=== PATIENT | female | born 1950 | race Caucasian/White ===

== ENCOUNTER 2023-10-01 15:21 | Emergency (ER) | payer OTHER ==
--- NOTE | 2023-10-01 15:47 | RAD REPORT ---
EXAM DESCRIPTION: CT - Ct Stroke Brain Wo Cont - 10/01/2023 3:37 pm CLINICAL HISTORY: STROKE ALERT COMPARISON: No comparisons TECHNIQUE: All CT scans are performed using dose optimization technique as appropriate and may inclu de automated exposure control or mA/KV adjustment according to patient size. FINDINGS: No intracranial hemorrhage, hydrocephalus or extra-axial fluid collection.No areas of brai n edema or evidence of midline shift. Patchy areas of white matter hypoattenuation in the subcortical and deep white matter likely reflecting chronic small vessel ischemic changes. No acute large vascul ar territory infarct identified. The paranasal sinuses and mastoids are clear. The calvarium is intact. IMPRESSION: No definite acute intracranial abnormality. Small nonspecific focus of high attenuation in the region of the right MCA which can be assessed on the forthcoming CTA head to exclude an acute thrombus. Conveyed to Dr. Forte by Dr. Lucas at 8598 on 10/01/23
--- NOTE | 2023-10-01 15:49 | EDPHYS ---
Physician Documentation [facility] Name: Karen Hammer Age: 73 yrs Sex: Female : 1950 Arrival Date: 10/01/2023 Time: 15:21 Bed 8 Private MD: ED Physician Winston Forte HPI: 09/30 15:31 This 73 yrs old Female presents to ER via EMS with complaints of left side megan weakness , on floor , last normal seen 730. 15:31 The patient's problem is reported as a facial droop, paresthesias, in left upper megan extremity, in left lower extremity. Onset: The symptoms/episode began/occurred today, at an unknown time. Duration: The episode is continuous. Context: found bu 130pm. The symptoms are alleviated by nothing. The symptoms are aggravated by nothing. Associated signs and symptoms: Pertinent positives: gait abnormality, weakness. Severity of symptoms: At their worst the symptoms were moderate in the emergency department the symptoms are unchanged. Patient's baseline: Neuro: alert and fully oriented, Motor: left-sided weakness, left-sided facial droop. The patient has not experienced similar symptoms in the past. Historical: - PMHx: 15:28 Diabetes mellitus; ll1 - Immunization history:: Adult Immunizations up to date. - Infectious Disease History:: Denies. - Social history:: Smoking status: Patient denies any tobacco usage or history of. ROS: 15:37 Constitutional: Negative for fever, chills, and weight loss, Eyes: Negative for injury, megan pain, redness, and discharge, ENT: Negative for injury, pain, and discharge, Neck: Negative for injury, pain, and swelling, Cardiovascular: Negative for chest pain, palpitations, and edema, Respiratory: Negative for shortness of breath, cough, wheezing, and pleuritic chest pain, Abdomen/GI: Negative for abdominal pain, nausea, vomiting, diarrhea, and constipation, Back: Negative for injury and pain, : Negative for injury, bleeding, discharge, and swelling, MS/Extremity: Negative for injury and deformity, Skin: Negative for injury, rash, and discoloration, Psych: Negative for depression, anxiety, suicide ideation, homicidal ideation, and hallucinations, Allergy/Immunology: Negative for hives, rash, and allergies, Endocrine: Negative for neck swelling, polydipsia, polyuria, polyphagia, and marked weight changes, Hematologic/Lymphatic: Negative for swollen nodes, abnormal bleeding, and unusual bruising, 15:37 Neuro: Positive for dizziness, weakness, of the face, left arm and left leg, Exam: 15:37 Constitutional: This is a well developed, well nourished patient who is awake, alert, megan and in no acute distress. Head/Face: Normocephalic, atraumatic. Eyes: Pupils equal round and reactive to light, extra-ocular motions intact. Lids and lashes normal. Conjunctiva and sclera are non-icteric and not injected. Cornea within normal limits. Periorbital areas with no swelling, redness, or edema. ENT: Nares patent. No nasal discharge, no septal abnormalities noted. Tympanic membranes are normal and external auditory canals are clear. Oropharynx with no redness, swelling, or masses, exudates, or evidence of obstruction, uvula midline. Mucous membranes moist. Neck: Trachea midline, no thyromegaly or masses palpated, and no cervical lymphadenopathy. Supple, full range of motion without nuchal rigidity, or vertebral point tenderness. No Meningismus. Chest/axilla: Normal chest wall appearance and motion. Nontender with no deformity. No lesions are appreciated. Cardiovascular: Regular rate and rhythm with a normal S1 and S2. No gallops, murmurs, or rubs. Normal PMI, no JVD. No pulse deficits. Respiratory: Lungs have equal breath sounds bilaterally, clear to auscultation and percussion. No rales, rhonchi or wheezes noted. No increased work of breathing, no retractions or nasal flaring. Abdomen/GI: Soft, non-tender, with normal bowel sounds. No distension or tympany. No guarding or rebound. No evidence of tenderness throughout. Back: No spinal tenderness. No costovertebral tenderness. Full range of motion. Female : Normal external genitalia. Skin: Warm, dry with normal turgor. Normal color with no rashes, no lesions, and no evidence of cellulitis. MS/ Extremity: Pulses equal, no cyanosis. Neurovascular intact. Full, normal range of motion. Psych: Awake, alert, with orientation to person, place and time. Behavior, mood, and affect are within normal limits. 15:37 Neuro: Orientation: is normal, appropriate for stated age, no acute changes, Mentation: is normal, appropriate for stated age, no acute changes, Memory: is normal, appropriate for stated age, no acute changes, Cranial nerves: facial droop noted on left, with forehead spared. Nystagmus is absent. Speech is clear and appropriate. Gag reflex present. Cerebellar function: is grossly normal, Sensation: is normal, no obvious gross deficits, appropriate no acute changes, Gait: not tested. 15:43 Radiologist reports: see report [facility] 16:16 ECG was reviewed by the Attending Physician. [facility] Vital Signs: 15:26 BP 142 / 76; Pulse 84; Resp 17; Temp 97.2(TE); Pulse Ox 100% on R/A; Weight 110.22 kg; ll1 Height 5 ft. 7 in. ; Pain 0/10; 16:24 BP 145 / 79; Pulse 94; Resp 17; Temp 97.2; Pulse Ox 99% ; bp 15:26 Body Mass Index 38.06 (110.22 kg, 170.18 cm) ll1 15:26 Pain Scale: Adult ll1 NIH Stroke Scale Scores: 15:52 NIHSS Score: 9 megan 16:05 NIHSS Score: 11 ph MDM: 15:27 Patient medically screened. [facility] 15:44 Differential diagnosis: CVA, TIA, metabolic disorder. Data reviewed: vital signs, [facility] nurses notes, EMS record, lab test result(s), EKG, radiologic studies, CT scan, plain films. Consideration of Admission/Observation Escalation of care including admission/observation considered. I considered the following discharge prescriptions or medication management in the emergency department Medications were administered in the Emergency Department. See MAR. Independent interpretation of the following test(s) in the Emergency Department EKG: See my EKG interpretation above. Test considered but Not performed: MRI: no mri brain. Historians other than the Patient: Spouse/Significant Other: well informed. Care significantly affected by the following chronic conditions: Diabetes. Counseling: I had a detailed discussion with the patient and/or guardian regarding the historical points, exam findings, and any diagnostic results supporting the discharge/admit diagnosis, lab results, radiology results, the need to transfer to another facility, for higher level of care, [facility] does not immediately have the required specialist. 09/30 15:29 Order name: Basic Metabolic Panel [facility] 09/30 15:29 Order name: CBC with Diff; Complete Time: 16:16 [facility] 09/30 15:29 Order name: LFT's [facility] 09/30 15:29 Order name: Magnesium [facility] 09/30 15:29 Order name: NT PRO-BNP [facility] 09/30 15:29 Order name: PT-INR [facility] 09/30 15:29 Order name: Troponin HS [facility] 09/30 15:29 Order name: CRP [facility] 09/30 15:29 Order name: XRAY Chest (1 view) [facility] 09/30 15:29 Order name: CT Stroke Brain w/o Contrast; Complete Time: 16:16 [facility] 09/30 15:29 Order name: CT Head Angio; Complete Time: 16:16 [facility] 09/30 15:29 Order name: CT Neck Angio; Complete Time: 16:16 [facility] 09/30 15:29 Order name: EKG; Complete Time: 15:30 [facility] 09/30 15:29 Order name: Cardiac monitoring; Complete Time: 15:57 [facility] 09/30 15:29 Order name: EKG - Nurse/Tech; Complete Time: 16:28 [facility] 09/30 15:29 Order name: IV Saline Lock; Complete Time: 15:57 [facility] 09/30 15:29 Order name: Labs collected and sent; Complete Time: 15:57 [facility] 09/30 15:29 Order name: O2 Per Protocol; Complete Time: 15:57 [facility] 09/30 15:29 Order name: O2 Sat Monitoring; Complete Time: 15:57 [facility] 09/30 15:55 Order name: NPO; Complete Time: 16:27 [facility] 09/30 15:58 Order name: IV Saline Lock - Large Bore; Complete Time: 16:27 [facility] EC:16 Rate is 79 beats/min. Rhythm is regular. QRS Bartley is Normal. DC interval is normal. QRS megan interval is normal. QT interval is normal. No Q waves. T waves are Normal. No ST changes noted. Clinical impression: NSR w/ Non-specific ST/T Changes and No evidence of ischemia. Interpreted by me. Reviewed by me. Administered Medications: 16:00 Drug: NS 0.9% IV 1000 ml IV at 1 bolus Per protocol; 1000 mL bolus Route: IV; Rate: 1 bp bolus; Site: right forearm; 16:29 Follow up: IV Status: Infusion continued upon transfer bp 16:00 Drug: foLIC Acid IVPB 1 mg IVPB once Route: IVPB; Site: right forearm; bp 16:29 Follow up: IV Status: Completed infusion bp 16:00 Drug: Famotidine IVP 20 mg IVP once; dilute with 10 mL 0.9% NaCl; give over 2 minutes bp Route: IVP; Site: right forearm; 16:28 Follow up: Response: No adverse reaction bp 16:00 Drug: Aspirin DC Suppository 300 mg DC once Route: DC; bp 16:28 Follow up: Response: No adverse reaction bp 16:00 Drug: NS 0.9% IV 1000 ml IV at 125 ml/hr continuous Route: IV; Rate: 125 ml/hr; Site: bp right forearm; 16:28 Follow up: IV Status: Infusion continued upon transfer bp Disposition Summary: 10/01/23 15:48 Transfer Ordered Notes: Transfer Location: [facility] megan Reason: Higher level of care megan Condition: Serious megan Problem: new megan Symptoms: have improved megan Accepting Physician: to [facility], [facility](10/01/23 16:32) ll1 Diagnosis - Cerebral infarction, unspecified - left face, arm and leg hemiparesis, unk window, megan last normal 730am - Type 2 diabetes mellitus with hyperglycemia megan Forms: - Medication Reconciliation Form megan - SBAR form megan Critical care time excluding procedures: 15:56 Critical care time: Bedside Care: 30 minutes, Consultation: 15 minutes, Family megan Intervention: 10 minutes. Total time: 55 minutes NIH Stroke Scale - NIH Stroke Score Date: 10/01/2023 Time: 15:52 Total Score = 9 10. Dysarthria (speech clarity - read or repeat words) - 0(Normal) 11. Extinction and Inattention (visual/tactile/auditory/spatial/personal) - 0(No abnormality) 1a. Level of Consciousness (LOC) - 0(Alert) 1b. Level of Consciousness (LOC) (Month \T\ Age) - 0(Both) 1c. LOC Commands (Open \T\ Closes Eyes/Portable Router Operator) - 0(Both) 2. Best Gaze (Lateral Gaze Paresis) - 0(Normal) 3. Visual Field Loss - 0(No visual loss) 4. Facial Palsy - 1(Minor Paralysis) 5a. Left Arm: Motor (10-second hold) - 3(No effort against gravity) 5b. Right Arm: Motor (10-second hold) - 0(No drift) 6a. Left Leg: Motor (5-second hold - always test supine) - 3(No effort against gravity) 6b. Right Leg: Motor (5-second hold - always test supine) - 0(No drift) 7. Limb Ataxia (finger/nose \T\ heel/maxwell - test with eyes open) - 2(Present in two limbs) 8. Sensory Loss (pinprick arms/legs/face) - 0(Normal) 9. Best Language: Aphasia (description/naming/reading) - 0(No aphasia) Initials: [facility] NIH Stroke Scale - NIH Stroke Score Date: 10/01/2023 Time: 16:05 Total Score = 11 10. Dysarthria (speech clarity - read or repeat words) - 0(Normal) 11. Extinction and Inattention (visual/tactile/auditory/spatial/personal) - 0(No abnormality) 1a. Level of Consciousness (LOC) - 0(Alert) 1b. Level of Consciousness (LOC) (Month \T\ Age) - 1(One) 1c. LOC Commands (Open \T\ Closes Eyes/Portable Router Operator) - 0(Both) 2. Best Gaze (Lateral Gaze Paresis) - 1(Partial gaze palsy) 3. Visual Field Loss - 1(Partial hemianopia) 4. Facial Palsy - 1(Minor Paralysis) 5a. Left Arm: Motor (10-second hold) - 3(No effort against gravity) 5b. Right Arm: Motor (10-second hold) - 0(No drift) 6a. Left Leg: Motor (5-second hold - always test supine) - 3(No effort against gravity) 6b. Right Leg: Motor (5-second hold - always test supine) - 0(No drift) 7. Limb Ataxia (finger/nose \T\ heel/maxwell - test with eyes open) - 0(Absent) 8. Sensory Loss (pinprick arms/legs/face) - 0(Normal) 9. Best Language: Aphasia (description/naming/reading) - 1(Mild to moderate aphasia) Initials: Signatures: Dispatcher [employer] EDWinston Peace MD MD cha Peltier, Brian, RN RN bp Lewis, Lynsay, RN RN ll1 Corrections: (The following items were deleted from the chart) 15:48 15:48 to [facility] 16:32 15:48 to [facility], [facility] ll1
--- NOTE | 2023-10-01 15:49 | ER ---
Nurse's Notes [facility] Name: Karen Hammer Age: 73 yrs Sex: Female : 1950 Arrival Date: 10/01/2023 Time: 15:21 Bed 8 Private MD: Diagnosis: Cerebral infarction, unspecified-left face, arm and leg hemiparesis, unk window, last normal 730am;Type 2 diabetes mellitus with hyperglycemia Presentation: 09/30 15:26 Chief complaint: Patient states: left home at 0730 AM and she was normal. Came ll1 home at 1330, and found her on the floor, unable to get up and L facial droop. Coronavirus screen: Client denies travel out of the [place] in the last 14 days. At this time, the client does not indicate any symptoms associated with coronavirus-19. Ebola Screen: Patient denies travel to an Ebola-affected area in the 21 days before illness onset. Initial Sepsis Screen: Does the patient meet any 2 criteria? No. Patient's initial sepsis screen is negative. Does the patient have a suspected source of infection? No. Patient's initial sepsis screen is negative. Risk Assessment: Do you want to hurt yourself or someone else? Patient reports no desire to harm self or others. Onset of symptoms was October 01, 2023. 15:26 Method Of Arrival: EMS ll1 15:26 Acuity: PIERRE 2 ll1 Triage Assessment: 15:25 General: Appears uncomfortable, Behavior is calm, cooperative, appropriate for age. ll1 Pain: Denies pain. Neuro: Reports weakness L sided facial droop, L arm weakness. Historical: - PMHx: 15:28 Diabetes mellitus; ll1 - Immunization history:: Adult Immunizations up to date. - Infectious Disease History:: Denies. - Social history:: Smoking status: Patient denies any tobacco usage or history of. Screenin:26 [facility] ED Fall Risk Assessment (Adult) History of falling in the last 3 months, bp including since admission Yes- physiologic fall (2 pts) Confusion or Disorientation Yes (5 pts) Intoxicated or Sedated No (0 pts) Impaired Gait Yes (1 pt) Mobility Assist Device Used No (0 pt) Altered Elimination No (0 pt) Score/Fall Risk Level 3 or more points = High Risk Oriented to surroundings, Maintained a safe environment, Educated pt \T\ family on fall prevention, incl call for assistance when getting out of bed, Used ambulatory aids as needed (educated on \T\ assisted with). Abuse screen: Denies threats or abuse. Denies injuries from another. Nutritional screening: No deficits noted. Tuberculosis screening: No symptoms or risk factors identified. Assessment: 16:00 Reassessment: REPORT TO IR WITH [facility]. bp 16:25 [facility]assessment[facility] bp 16:25 Reassessment: ATTEMPT TO CALL REPORT TO [facility] ER, NO ANSWER. bp 16:35 Reassessment: 2ND ATTEMPT TO CALL REPORT TO [facility] ER, NO ANSWER. bp Vital Signs: 15:26 BP 142 / 76; Pulse 84; Resp 17; Temp 97.2(TE); Pulse Ox 100% on R/A; Weight 110.22 kg; ll1 Height 5 ft. 7 in. ; Pain 0/10; 16:24 BP 145 / 79; Pulse 94; Resp 17; Temp 97.2; Pulse Ox 99% ; bp 15:26 Body Mass Index 38.06 (110.22 kg, 170.18 cm) ll1 15:26 Pain Scale: Adult ll1 NIH Stroke Scale Scores: 15:52 NIHSS Score: 9 megan 16:05 NIHSS Score: 11 ph ED Course: 15:24 Patient arrived in ED. eb 15:25 Arm band placed on Patient placed in an exam room, on a stretcher. ll1 15:27 Winston Forte MD is Attending Physician. megan 15:28 Triage completed. ll1 15:30 Maintain EMS IV. Dressing intact. Good blood return noted. Site clean \T\ dry. Gauge \T\ bp site: 22 GA R FA. 15:39 CT Stroke Brain w/o Contrast In Process Unspecified. EDMS 15:48 initiated a transfer with Delvis from the [facility] Transfer Center. eb 15:[address] Tejeda the neuro color control supervisor for [facility] with Dr. Forte for patient eb transfer consultation. 15:53 CT Head Angio In Process Unspecified. EDMS 15:53 CT Neck Angio In Process Unspecified. EDMS 15:57 Festus Carias, MILO is Primary Nurse. bp 16:00 Dr. Forte called [facility]. eb 16:06 connected the ED Doc color control supervisor for [facility] with Dr. Forte for patient transfer eb consultation. 16:07 administrative approval given by Delvis Michael Rn/ patient has been accepted to [facility] ED/ Dr. Renan Munroe has accepted the patient in transfer/ report to be called to [phone]. 16:17 XRAY Chest (1 view) In Process Unspecified. EDMS 16:26 Patient has correct armband on for positive identification. Bed in low position. Call bp light in reach. Side rails up X2. Adult w/ patient. Provided Education on: N/A. 16:26 No provider procedures requiring assistance completed. Patient transferred, IV remains bp in place. Administered Medications: 16:00 Drug: NS 0.9% IV 1000 ml IV at 1 bolus Per protocol; 1000 mL bolus Route: IV; Rate: 1 bp bolus; Site: right forearm; 16:29 Follow up: IV Status: Infusion continued upon transfer bp 16:00 Drug: foLIC Acid IVPB 1 mg IVPB once Route: IVPB; Site: right forearm; bp 16:29 Follow up: IV Status: Completed infusion bp 16:00 Drug: Famotidine IVP 20 mg IVP once; dilute with 10 mL 0.9% NaCl; give over 2 minutes bp Route: IVP; Site: right forearm; 16:28 Follow up: Response: No adverse reaction bp 16:00 Drug: Aspirin CT Suppository [address] once Route: CT; bp 16:28 Follow up: Response: No adverse reaction bp 16:00 Drug: NS 0.9% IV 1000 ml IV at 125 ml/hr continuous Route: IV; Rate: 125 ml/hr; Site: bp right forearm; 16:28 Follow up: IV Status: Infusion continued upon transfer bp Medication: 16:27 VIS not applicable for this client. bp Outcome: 15:48 ER care complete, transfer ordered by megan 16:26 Transferred by helicopter to [facility], Transfer form completed. bp 16:26 Condition: stable 16:26 Instructed on the need for transfer, 16:32 Patient left the ED. ll1 NIH Stroke Scale - NIH Stroke Score Date: 10/01/2023 Time: 15:52 Total Score = 9 10. Dysarthria (speech clarity - read or repeat words) - 0(Normal) 11. Extinction and Inattention (visual/tactile/auditory/spatial/personal) - 0(No abnormality) 1a. Level of Consciousness (LOC) - 0(Alert) 1b. Level of Consciousness (LOC) (Month \T\ Age) - 0(Both) 1c. LOC Commands (Open \T\ Closes Eyes/Manager [employer]) - 0(Both) 2. Best Gaze (Lateral Gaze Paresis) - 0(Normal) 3. Visual Field Loss - 0(No visual loss) 4. Facial Palsy - 1(Minor Paralysis) 5a. Left Arm: Motor (10-second hold) - 3(No effort against gravity) 5b. Right Arm: Motor (10-second hold) - 0(No drift) 6a. Left Leg: Motor (5-second hold - always test supine) - 3(No effort against gravity) 6b. Right Leg: Motor (5-second hold - always test supine) - 0(No drift) 7. Limb Ataxia (finger/nose \T\ heel/maxwell - test with eyes open) - 2(Present in two limbs) 8. Sensory Loss (pinprick arms/legs/face) - 0(Normal) 9. Best Language: Aphasia (description/naming/reading) - 0(No aphasia) Initials: [facility] NIH Stroke Scale - NIH Stroke Score Date: 10/01/2023 Time: 16:05 Total Score = 11 10. Dysarthria (speech clarity - read or repeat words) - 0(Normal) 11. Extinction and Inattention (visual/tactile/auditory/spatial/personal) - 0(No abnormality) 1a. Level of Consciousness (LOC) - 0(Alert) 1b. Level of Consciousness (LOC) (Month \T\ Age) - 1(One) 1c. LOC Commands (Open \T\ Closes Eyes/Manager [employer] Retail) - 0(Both) 2. Best Gaze (Lateral Gaze Paresis) - 1(Partial gaze palsy) 3. Visual Field Loss - 1(Partial hemianopia) 4. Facial Palsy - 1(Minor Paralysis) 5a. Left Arm: Motor (10-second hold) - 3(No effort against gravity) 5b. Right Arm: Motor (10-second hold) - 0(No drift) 6a. Left Leg: Motor (5-second hold - always test supine) - 3(No effort against gravity) 6b. Right Leg: Motor (5-second hold - always test supine) - 0(No drift) 7. Limb Ataxia (finger/nose \T\ heel/maxwell - test with eyes open) - 0(Absent) 8. Sensory Loss (pinprick arms/legs/face) - 0(Normal) 9. Best Language: Aphasia (description/naming/reading) - 1(Mild to moderate aphasia) Initials: ph Signatures: Dispatcher [employer] EDWinston Peace MD MD cha Hall, Patricia, RN RN ph Festus Carias RN RN Ester Smith Lynsay RN RN ll1 Corrections: (The following items were deleted from the chart) 15:30 15:26 BP 142 / 76; Pulse 84bpm; Resp 17bpm; Pulse Ox 100% RA; Pain 0/10, Adult; ll1 ll1
[2023-10-01] MEDS ORDERED: FAMOTIDINE 20 MG/2 ML VIAL IV ONE (16:01)
[2023-10-01] MEDS ORDERED: FOLIC ACID 5 MG/ML VIAL ONE (16:01)
[2023-10-01] MEDS ORDERED: NA CHLORIDE 0.9% 1,000 ML ONE (16:02)
--- NOTE | 2023-10-01 16:10 | RAD REPORT ---
EXAM DESCRIPTION: CT - Head angio - 10/01/2023 3:51 pm CLINICAL HISTORY: TIA;Weakness COMPARISON: Ct Stroke Brain Wo Cont dated 10/01/2023 TECHNIQUE: CT angiography of the head was performed with maximum intensity reformatted images. 3D ma ximum intensity pixel (MIP) reconstructions were created All CT scans are performed using dose optimization technique as appropriate and may include automated exposure control or mA/KV adjustment according to patient size. FINDINGS: Anterior circulation: Small filling defect within the distal right M1 segment middle cerebral artery which does not appear completely occlusive as there is some collateral flow medially beyond. There is a moderate to severe focal stenosis of the left proximal M2 MCA. origin of the right and left sandfill operator. Bilateral ICA ca lcified plaque without flow limiting stenosis. Severe long segment stenosis of the left A1 segment of the anterior cerebral artery. Posterior circulation: origin of the posterior cerebral arteries. There is a severe focal stenosis of the right P2 seg ment of the posterior cerebral artery. The left posterior cerebral artery is patent. Both vertebral a rteries are patent as is the basilar artery. IMPRESSION: 1. Filling defect within the right distal M1 segment middle cerebral artery could repres ent an acute thrombus with short-segment occlusion versus high-grade narrowing. Collateral flow is pr esent beyond. 2. Moderate to severe focal stenosis of the left proximal M2 segment and severe right P2 segment PERSONAL COUNSELOR stenosis. 3. Severe long segment stenosis of the left A2 segment of the anterior cerebral artery which is age i ndeterminate. 4. These findings could represent a vasculitis. Regarding the MCA finding, discussed with Dr. Forte by Dr. Lucas at 1553 on 10/01/23.
[2023-10-01 16:12] LABS: Absolute Monocytes 0.4 K/uL (0.1-1.3); Absolute Neutrophil 6.4 K/uL (1.8-8.0); Basophils % 0.5 % (0-1.3); Eosinophils % 0.2 % (0-4.4); Hematocrit 43.1 % (36.0-45.0); Hemoglobin 14.1 g/dL (12.0-15.0); Lymphocytes % 12.7 % (15.3-44.8); MCHC 32.8 g/dL (32.0-36.0); MCV 91.5 fL (80-100); MPV 9.1 fL (7.6-11.3); Monocytes % 5.5 % (3.3-12.3); Neutrophils % 81.1 % (41.7-73.7); Platelets 252 thou/uL (152-406); RBC Red Blood Cell Count 4.72 M/uL (3.86-4.86); Red Cell Distribution Width 14.6 % (12.1-15.2)
--- NOTE | 2023-10-01 16:14 | RAD REPORT ---
EXAM DESCRIPTION: CT - Neck Angio - 10/01/2023 3:51 pm CLINICAL HISTORY: PAIN COMPARISON: No comparisons TECHNIQUE: CT angiography of the neck vessels was performed with maximum intensity reformatted image s. CAROTID STENOSIS REFERENCE USING NASCET CRITERIA: Mild - <50% stenosis. Moderate - 50-69% stenosis. Severe - 70-94% stenosis. Near occlusion - 95-99% stenosis. Occluded - 100% stenosis. All CT scans are performed using dose optimization technique as appropriate and may include automated exposure control or mA/KV adjustment according to patient size. FINDINGS: A left aortic arch is identified with normal three vessel configuration of the great vesse ls. Severe focal stenosis of the left proximal subclavian artery. No significant flow abnormality is seen of the common carotid bilaterally. No significant stenosis is identified involving the cervical segments of both internal carotid arteri es. Normal flow is seen within both vertebral arteries. IMPRESSION: No significant flow abnormality of the neck vessels is identified.
[2023-10-01] MEDS ORDERED: ASPIRIN 81 MG CHEWABLE TABLET ONE (16:20)
--- NOTE | 2023-10-01 16:20 | RAD REPORT ---
EXAM DESCRIPTION: RAD - Chest Single View - 10/01/2023 4:15 pm CLINICAL HISTORY: COUGH COMPARISON: <Comparisons> FINDINGS: Lines: None. Lungs: No evidence of edema or pneumonia. Pleural: No significant pleural effusions or pneumothorax. Cardiac: The heart size is within normal limits. Mediastinum: Within normal limits. Bones: No acute fractures. Other: None IMPRESSION: No acute cardiopulmonary disease.
[2023-10-01 16:26] LABS: PT Prothrombin Time 11.6 SECONDS (9.5-12.5); Protime INR 1.06
[2023-10-01 16:32] LABS: ALT/SGPT 19 U/L (13-56); AST/SGOT 18 U/L (15-37); Albumin 3.4 g/dL (3.4-5.0); Albumin/Globulin Ratio 0.8 (1.1-1.8); Alkaline Phosphatase 58 U/L (45-117); Anion Gap 10.9 mEq/L (5.0-15.0); BUN Blood Urea Nitrogen 27 mg/dL (7-18); Bicarbonate 28 mEq/L (21-32); Bilirubin Direct 0.3 mg/dL (0-0.2); Bilirubin Indirect, Calculated 0.6 mg/dL (0.2-0.8); Bilirubin Total 0.9 mg/dL (0.2-1.0); Globulin 4.3 g/dL (2.3-3.5); Glomerular Filtration Rate 57 ml/min (=/>90); Glucose Level 251 mg/dL (74-106); Magnesium 1.8 mg/dL (1.6-2.4); NT PRO-BNP 3777 pg/mL (<125); Potassium 3.9 mEq/L (3.5-5.1); Protein, Total 7.7 g/dL (6.4-8.2); Sodium Level 139 mEq/L (136-145)
[2023-10-01 16:34] LABS: C-Reactive Protein < 2.90 mg/L (<3.00)
[2023-10-01 16:35] LABS: Troponin High Sensitivity 939.6 pg/mL (<58.9)
[2023-10-01 16:59] VITALS: BP 145/79; TEMP 97.2; O2SAT 99
--- NOTE | 2023-10-03 14:10 | EKG ---
Test Date: 2023-10-01 Test Time: 16:08:22 [employer]: BP MEASUREMENT RESULTS: Intervals: Rate: 95 MD: 154 QRSD: 78 QT: 358 QTc: 449 [place]: P: 84 MD: 154 QRS: -34 T: -54 INTERPRETIVE STATEMENTS: Normal sinus rhythm Left axis deviation Pulmonary disease pattern Septal infarct, age undetermined Abnormal ECG No previous ECG available for comparison Electronically Signed On 10-03-23 14:05:48 CDT by Bear Batres
== END 2023-10-01 16:32 | disposition short-term general hospital (02) ==
LOC: ER 15:21
DX: I63.9 Cerebral infarction, unspecified (principal); G81.94 Hemiplegia, unspecified affecting left nondominant side; E11.65 Type 2 diabetes mellitus with hyperglycemia; R29.711 NIHSS score 11
CPT/HCPCS: 96365; 93005; 85025; 80048; 36415; 83735; 85610; 82565; 80076; 84484; 83880; 86140; 70496; 70498; 70450; 71045; 96375; 99285; Q9967; J7030